=== PATIENT | male | born 1940 | race Caucasian/White ===

== ENCOUNTER 2021-09-30 18:05 | Emergency (ER) | payer OTHER ==
[~2021-09-30] VITALS: Ht 170.2 cm; Wt 70.4 kg
--- NOTE | 2021-09-30 19:16 | NUR ---
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
[2021-09-30 20:02] VITALS: BP 161/70
== END 2021-09-30 20:06 | disposition home or self-care (01) ==
LOC: ER 18:06
DX: R22.42 Localized swelling, mass and lump, left lower limb (principal); I10 Essential (primary) hypertension; F17.200 Nicotine dependence, unspecified, uncomplicated
CPT/HCPCS: 93971; 99284